=== PATIENT | male | born 1970 | race Caucasian/White ===

== ENCOUNTER 2021-03-23 18:20 | Emergency (ER) | payer BC ==
[~2021-03-23] VITALS: Ht 185.4 cm; Wt 97.7 kg
[2021-03-23 18:22] VITALS: BP 112/67
[2021-03-23] MEDS ORDERED: ALBU8.5H (18:32)
[2021-03-23] MEDS ORDERED: PANT20TA6 (18:32)
[2021-03-23] MEDS ORDERED: LEVOTAB10 (18:33)
[2021-03-23] MEDS ORDERED: LEVO25TA5 (18:33)
[2021-03-23] MEDS ORDERED: MELO15TA28 (18:33)
== END 2021-03-24 02:33 | disposition left against medical advice (07) ==
LOC: M ED 18:20
DX: Z53.21 Procedure and treatment not carried out due to patient leaving prior to being seen by health care provider (principal)

== ENCOUNTER 2021-03-24 11:14 | Outpatient (CLI) | payer BC ==
[~2021-03-24] VITALS: Ht 185.4 cm; Wt 91.0 kg
[~2021-03-24 11:14] MED LIST: ALBU8.5H; ALBUTEROL 90 MCG/ACT 8GM HFA INHALER INH PRN; ALBUTEROL SULFATE 2.5 MG/0.5 ML INH NEB SOLN INH PRN; EPINEPHrine INJ 1 MG/ML 1ML AMP IM PRN; LEVO25TA5; LEVOTAB10; MELO15TA28; NS 1,000 ML IV SCH; PANT20TA6; diphenhydrAMINE 50MG/ML VIAL (J1200) IV PRN; methylPREDNISolone 125MG 2ML VIAL IV PRN
[2021-03-24] MEDS ORDERED: CASIRIVIMAB (REGN10933) 600 MG, IMDEVIMAB (REGN10987) 600 MG in NS 250 ML IV ONE (11:30)
[2021-03-24] MEDS ORDERED: ACETAMINOPHEN TAB 650MG DOSE (2X325MG) PO ONE (11:30)
[2021-03-24 12:00] VITALS: BP 152/78
[2021-03-24 12:15] VITALS: BP 127/70
[2021-03-24 12:45] VITALS: BP 163/83
[2021-03-24 13:15] VITALS: BP 99/64
[2021-03-24 14:15] VITALS: BP 105/69
== END 2021-03-24 14:15 | disposition home or self-care (01) ==
LOC: M OPCLI4PR 11:14
PROVIDERS: ATTEND Student in an Organized Health Care Education/Training Program
DX: U07.1 COVID-19 (principal)